=== PATIENT | male | born 1990 | race Caucasian/White ===

== ENCOUNTER 2016-10-22 15:30 | Emergency (ER) | payer OTHER ==
[2016-10-22 15:41] VITALS: BP 152/102
[2016-10-22] MEDS ORDERED: cefTRIAXone VIAL(*) 250 MG VIAL IM ONE (15:47)
--- NOTE | 2016-10-22 15:47 | UC ---
Complaint Male HPI - HPI Summary HPI Summary: 26 YEAR OLD MALE PRESENTS WITH COMPLAINS OF HIS PARTNER BEING POSITIVE WITH TRICHOMONAS. - History of Current Complaint Chief Complaint: [facility]U Stated Complaint: PERSONAL COMPLAINT Time Seen by Provider: 10/22/16 15:44 Hx Obtained From: Patient Onset/Duration: Sudden Onset Timing: Constant Severity Initially: Moderate Severity Currently: Moderate Pain Scale Used: 0-10 Numeric - 5 - Allergies/Home Medications Allergies/Adverse Reactions: Allergies Allergy/AdvReac Type Severity Reaction Status Date / Time No Known Allergies Allergy Verified 10/22/16 15:41 Home Medications: Home Medications Bupropion XL* [Wellbutrin XL *] 150 mg PO DAILY 10/22/16 [History Confirmed ] Sertraline* [Zoloft*] 50 mg PO BEDTIME 10/22/16 [History Confirmed 10/22/16] PMH/Surg Hx/FS Hx/Imm Hx Previously Healthy: Yes - Surgical History Surgical History: None - Social History Alcohol Use: Weekly Substance Use Type: None Smoking Status (MU): Current Every Day Smoker Review of Systems Constitutional: Negative Skin: Negative Eyes: Negative ENT: Negative Respiratory: Negative Cardiovascular: Negative Gastrointestinal: Negative Genitourinary: Negative Motor: Negative Neurovascular: Negative Musculoskeletal: Negative Neurological: Negative Psychological: Negative All Other Systems Reviewed And Are Negative: Yes Physical Exam Triage Information Reviewed: Yes Vital Signs: Initial Vital Signs Temp 36.9 C 10/22/16 15:37 Pulse 88 10/22/16 15:37 Resp 20 10/22/16 15:37 BP 152/102 10/22/16 15:37 Pulse Ox 98 10/22/16 15:37 Eye Exam: Normal ENT Exam: Normal Dental Exam: Normal Neck exam: Normal Neck: Positive: 1 Respiratory Exam: Normal Cardiovascular Exam: Normal Abdominal Exam: Normal Musculoskeletal Exam: Normal Neurological Exam: Normal Psychological Exam: Normal Skin Exam: Normal Complaint Male Course/Dx - Differential Dx/Diagnosis Provider Diagnoses: STD Discharge - Discharge Plan Condition: Stable Disposition: HOME Prescriptions: Metronidazole [Flagyl 500 MG TAB] 500 mg PO BID #14 tab Patient Education Materials: Sexually Transmitted Diseases (ED), Condom Use (ED ), Safe Sex (ED) Referrals: Aga Mariee NP [Primary Care Provider] -
[2016-10-22] MEDS ORDERED: Azithromycin TAB* 250 MG PO ONE (15:48)
[2016-10-22] MEDS ORDERED: Lidocaine 1% MPF* 2 ML VIAL ONE (16:01)
--- NOTE | 2016-10-23 19:10 | ED ---
Progress - Progress Note Progress Note: CALL PATIENT. G/C NEGATIVE. IF WORSE GO TO ER. Course/Dx - Diagnoses Provider Diagnoses: STD (male)
[2016-10-26 20:51] LABS: Trichomonas vaginalis SOURCE: Urine (Male Patient)
== END 2016-10-22 16:26 | disposition home or self-care (01) ==
LOC: UCEAST 15:30
DX: Z20.2 Contact with and (suspected) exposure to infections with a predominantly sexual mode of transmission (principal); F17.210 Nicotine dependence, cigarettes, uncomplicated
CPT/HCPCS: 81003; 87086; 87491; 87591; 87661; 96372; 99202; A9270-GY; G0463; J0696

== ENCOUNTER 2019-04-26 00:56 | Emergency (ER) | payer OTHER ==
--- NOTE | 2019-04-26 01:11 | ED ---
Head Injury - HPI Summary HPI Summary: Patient is a 28 y/o M presenting to [facility] with complaints of ARAMBULA, difficulty concentrating, increased fatigue, nausea, decreased appetite, and photophobia. He states that he sustained a head injury on 04/23/19 after falling down a few steps while intoxicated. He states that he has not "felt the same" since the injury. Patient does not recall the incident due to his intoxication at the time. He states that he was told that it did not appear that he experienced LOC during the fall. Neck pain, chest pain, other injuries are denied. Home medications and allergies are reviewed. Home Medications Medication Instructions Recorded Confirmed Type Bupropion XL* [Wellbutrin XL *] 150 mg PO DAILY 10/22/16 10/22/16 History Sertraline* [Zoloft*] 50 mg PO BEDTIME 10/22/16 10/22/16 History metroNIDAZOLE [Flagyl 500 MG TAB] 500 mg PO BID #14 tab 10/22/16 Rx - History Of Current Complaint Chief Complaint: EDHeadInjury Stated Complaint: FALL PER PT Time Seen by Provider: 04/26/19 01:02 Hx Obtained From: Patient Mechanism Of Injury: Fall From Height Of: - a few stairs Onset/Duration: Started Days Ago, Still Present Onset of Pain: Days, Prior to Arrival Severity Initially: Mild Pain Intensity: 3 Pain Scale Used: 0-10 Numeric Associated Signs And Symptoms: Nausea, Headache, Other: - positive - increased fatigue, difficulty concentrating, decreased appetite; negative - neck pain, chest pain, other injuries - Allergies/Home Medications Allergies/Adverse Reactions: Allergies Allergy/AdvReac Type Severity Reaction Status Date / Time No Known Allergies Allergy Verified 04/26/19 01:00 Home Medications: Home Medications Bupropion XL* [Wellbutrin XL *] 150 mg PO DAILY 10/22/16 [History Confirmed ] Sertraline* [Zoloft*] 50 mg PO BEDTIME 10/22/16 [History Confirmed 04/26/19] metroNIDAZOLE [Flagyl 500 MG TAB] 500 mg PO BID #14 tab 10/22/16 [Rx Confirmed 04/26/19] PMH/Surg Hx/FS Hx/Imm Hx Endocrine/Hematology History: Denies: Hx Diabetes, Hx Thyroid Disease Cardiovascular History: Denies: Hx Hypertension Respiratory History: Denies: Hx Asthma, Hx Chronic Obstructive Pulmonary Disease (COPD) GI History: Denies: Hx Ulcer Infectious Disease History: No Infectious Disease History: Denies: Hx Clostridium Difficile, Hx Hepatitis, Hx Human Immunodeficiency Virus (HIV), Hx of Known/Suspected MRSA, Hx Shingles, Hx Tuberculosis, Hx Known/ Suspected VRE, Hx Known/Suspected VRSA, History Other Infectious Disease, Traveled Outside the [place] in Last 30 Days - Family History Known Family History: Negative: Blood Disorder - Social History Alcohol Use: Weekly Substance Use Type: Reports: None Smoking Status (MU): Current Every Day Smoker Review of Systems Positive: Fatigue Positive: Photophobia Negative: Chest Pain Positive: Nausea, Other - decreased appetite Musculoskeletal: Other - negative - neck pain Neurological/Mental Status: Other - positive - difficulty concentrating, head injury Positive: Headache All Other Systems Reviewed And Are Negative: Yes Physical Exam - Summary Physical Exam Summary: Appearance: Well-appearing, Well-nourished, lying in bed comfortably Skin: Warm, dry, no obvious rash Eyes: sclera anicteric, no conjunctival pallor HENT: mucous membranes moist, pharynx appears normal Neck: Supple, nontender Respiratory: Clear to auscultation, no signs of respiratory distress Cardiovascular: Normal S1, S2. No murmurs. Normal distal pulses in tibial and radial bilaterally. Abdomen: Soft, nontender, normal active bowel sounds present Musculoskeletal: Normal, Strength/ROM Intact Neurological: A&Ox3, awake and alert, mentation is normal, speech is fluent and appropriate; GCS 15 Psychiatric: affect is normal, does not appear anxious or depressed Triage Information Reviewed: Yes Vital Signs On Initial Exam: Initial Vitals Temp Pulse Resp BP Pulse Ox 98.2 F 81 16 169/113 100 04/26/19 00:57 04/26/19 00:57 04/26/19 00:57 04/26/19 00:57 04/26/19 00:57 Vital Signs Reviewed: Yes - Adrianna Coma Scale Best Eye Response: 4 - Spontaneous Best Motor Response: 6 - Obeys Commands Best Verbal Response: 5 - Oriented Coma Scale Total: 15 Procedures - Sedation Patient Received Moderate/Deep Sedation with Procedure: No Diagnostics - Vital Signs Vital Signs Temp Pulse Resp BP Pulse Ox 04/26/19 00:57 98.2 F 81 16 169/113 100 - Laboratory Lab Statement: Any lab studies that have been ordered have been reviewed, and results considered in the medical decision making process. - CT BRAIN CT CT Interpretation Completed By: Radiologist Summary of CT Findings: IMPRESSION: No acute intracranial abnormality. THIS REPORT WAS REVIEWED BY ED PHYSICIAN. Re-Evaluation - Re-Evaluation First Eval Re-Evaluation Time: 02:26 Comment: Brain CT was discussed, patient discharged to home. Head Injury Course/Dx Course Of Treatment: Patient is a 28 y/o M presenting to [facility] with complaints of ARAMBULA, difficulty concentrating, increased fatigue, nausea, decreased appetite, and photophobia. He states that he sustained a head injury on 04/23/19 after falling down a few steps while intoxicated. He states that he has not "felt the same" since the injury. Patient does not recall the incident due to his intoxication at the time. He states that he was told that it did not appear that he experienced LOC during the fall. Neck pain, chest pain, other injuries are denied. On physical exam, patient is noted to be awake, alert, and oriented x3, he is moving all extremities normally and he is with fluent speech. BRAIN CT IMPRESSION: No acute intracranial abnormality. Brain CT was discussed, patient discharged to home with PCP followup. - Diagnoses Provider Diagnoses: Concussion Discharge ED - Sign-Out/Discharge Documenting (check all that apply): Patient Departure - discharge - Discharge Plan Condition: Good Disposition: HOME Patient Education Materials: Concussion (ED) Forms: *Work Release Referrals: Aga Mariee NP [Primary Care Provider] - 1 Week - Billing Disposition and Condition Condition: GOOD Disposition: Home - Attestation Statements Document Initiated by Maggy: Yes Documenting Leolaibe: BHASKAR ZAVALA Provider For Whom Maggy is Documenting (Include Credential): CAN ALMENDAREZ MD Scribkyle Attestation: BHASKAR Atkins, jaswanted for CAN ALMENDAREZ MD on 04/26/19 at 0610. Scribe Documentation Reviewed: Yes Provider Attestation: The documentation as recorded by the BHASKAR bojorquez accurately reflects the service I personally performed and the decisions made by me, CAN ALMENDAREZ MD Status of Scribe Document: Viewed
[2019-04-26 02:38] VITALS: BP 139/92
== END 2019-04-26 02:37 | disposition home or self-care (01) ==
LOC: ED 00:56
DX: S06.0X0A Concussion without loss of consciousness, initial encounter (principal); W10.9XXA Fall (on) (from) unspecified stairs and steps, initial encounter; Y92.9 Unspecified place or not applicable; F17.200 Nicotine dependence, unspecified, uncomplicated; Z79.899 Other long term (current) drug therapy
CPT/HCPCS: 70450; 99282